=== PATIENT | male | born 1965 | race Hispanic/Latino ===

== ENCOUNTER 2018-08-16 10:33 | Emergency (ER) | payer SELFPAY ==
[2018-08-16] MEDS ORDERED: ISOVUE-370 76%-LOCM 1 ML ONE (10:34)
--- NOTE | 2018-08-16 11:37 | CT ---
Exam: CT of the cervical spine without contrast HISTORY: Fall off scaffolding with head trauma and neck pain COMPARISON: None TECHNIQUE: Multiple contiguous axial images were obtained in a CT of the cervical spine without contr ast. Sagittal and coronal reformats were performed. FINDINGS: The vertebral bodies and intervertebral discs demonstrate normal height and alignment witho ut fracture or subluxation. No prevertebral soft tissue swelling is seen. No degenerative changes are present. The posterior facets are well aligned. Normal alignment of the skull base with the cervical spine is seen. The lung apices and cervical soft tissues are unremarkable. IMPRESSION: No evidence of acute osseous abnormality of the cervical spine.
--- NOTE | 2018-08-16 11:39 | CT ---
CT HEAD NONCONTRAST: Date: 08/16/18 INDICATION: Fall with head injury and pain. FINDINGS: There is no acute intracranial hemorrhage, mass effect, midline shift, or ventriculomegaly. Scattered paranasal sinus mucosal thickening is present. IMPRESSION: No acute intracranial hemorrhage or mass effect. POS: OFF
--- NOTE | 2018-08-16 11:40 | CT ---
CT FACIAL BONES NONCONTRAST: Date: 08/16/18 INDICATION: Fall with facial injury, pain. FINDINGS: Orbital barba are intact. No retrobulbar hemorrhage or mass effect. Intraocular lenses maintain appro priate alignment. Temporomandibular joints maintain alignment. Pterygoid plates are intact. Scattered paranasal sinus mucosal thickening is present, most pronounced at the inferior right maxillary sinus . No acute hemorrhagic fluid level of the paranasal sinuses is seen. IMPRESSION: 1. There is no acute displaced facial fracture. 2. Frontal scalp contusion. Correlate clinically. POS: OFF
--- NOTE | 2018-08-16 12:03 | CT ---
CT OF CHEST AND ABDOMEN AND PELVIS AND THORACIC SPINE AND LUMBAR SPINE PERFORMED WITH CONTRAST ENHANC EMENT: Date: 08/16/18 HISTORY: Patient fell off of a 5-ft scaffolding earlier today with pain more left-sided. FINDINGS: CT CHEST: The lungs are clear of any infiltrative process. No pleural effusions. No evidence for pulmonary cont usion or pneumothorax. No rib fractures. The thoracic aorta is normal in caliber. No mediastinal gopi sapna. CT ABDOMEN: Suggestion of some possible fatty change to liver. Spleen, pancreas, and gallbladder regions all appe ar unremarkable. Right and left adrenal glands, and right and left kidneys are normal in size. Small hypodensities involving the kidneys statistically are likely small cysts. No free fluid or sign for a ny bowel wall injury. CT PELVIS: No adenopathy, mass, or free fluid. No signs of any fractures of the bony pelvic ring. CT THORACIC SPINE: Arthritic changes without evidence of any acute injury. CT LUMBAR SPINE: No signs of any acute injury. IMPRESSION: No acute abnormalities of the chest, abdomen, or pelvis. POS: [facility]
[2018-08-16] MEDS ORDERED: Bacitracin Zinc 1 Packet ONE (12:12)
== END 2018-08-16 13:05 | disposition home or self-care (01) ==
LOC: ERS 10:33
DX: S01.112A Laceration without foreign body of left eyelid and periocular area, initial encounter (principal); S30.811A Abrasion of abdominal wall, initial encounter; Z87.891 Personal history of nicotine dependence; W17.89XA Other fall from one level to another, initial encounter
CPT/HCPCS: 70450; 70486; 71260; 72125; 74177; Q9966